=== PATIENT | female | born 1995 | race Caucasian/White ===

== ENCOUNTER 2018-09-13 12:30 | Emergency (ER) | payer BC ==
[2018-09-13 13:10] VITALS: BP 143/80
[2018-09-13 13:56] LABS: Influenza A Molecular POSITIVE (Negative)
[2018-09-13] MEDS ORDERED: Ondansetron ODT TAB* 4 MG PO ONE (14:35)
--- NOTE | 2018-09-13 14:37 | UC ---
FLU HPI - HPI Summary HPI Summary: 23 year old female comes in with a chief complaint of fever chills body aches. Patient has had some upper respiratory tract infection symptoms for about 3 days however yesterday she suddenly felt a lot more ill with the body aches fevers and chills. She is also nauseous. Decreased by mouth intake because of the nausea. Acetaminophen has been helping with the body aches and the fevers. Does have some chest congestion but does not feel short of breath does not have any history of asthma. Does have some sore throat but it's mild and does not remind her of strep throat. - History of Current Complaint Chief Complaint: UCGeneralIllness Stated Complaint: BODY ACHES,HEADACHE,COUGH Time Seen by Provider: 09/13/18 14:25 Hx Last Menstrual Period: 09/04/18 Pain Intensity: 7 - Allergy/Home Medications Allergies/Adverse Reactions: Allergies Allergy/AdvReac Type Severity Reaction Status Date / Time amoxicillin Allergy Hives Verified 09/13/18 13:07 walnut Allergy Swelling Verified 09/13/18 13:07 Of Face,Lips,& Throat Home Medications: Home Medications Acetaminophen TAB* [Tylenol TAB*] 650 mg PO Q4H PRN 09/13/18 [History Confirmed 09/13/18] Bcp 1 tab PO DAILY 09/13/18 [History] D-Methorphan/PE/Acetaminophen [Gnp Day Time Cold/Flu Rel] 1 liq PO Q8H 09/13/18 [History Confirmed 09/13/18] PMH/Surg Hx/FS Hx/Imm Hx Previously Healthy: Yes - Surgical History Surgical History: None - Family History Known Family History: Positive: Non-Contributory - Social History Alcohol Use: Weekly Substance Use Type: None Smoking Status (MU): Never Smoked Tobacco Review of Systems All Other Systems Reviewed And Are Negative: Yes Constitutional: Positive: Fever, Chills Skin: Positive: Negative Eyes: Positive: Negative ENT: Positive: Sore Throat, Nasal Discharge, Sinus Congestion Respiratory: Positive: Cough Cardiovascular: Positive: Negative Gastrointestinal: Positive: Nausea Motor: Positive: Negative Neurovascular: Positive: Negative Musculoskeletal: Positive: Myalgia Neurological: Positive: Negative Psychological: Positive: Negative Is Patient Immunocompromised?: No Physical Exam Triage Information Reviewed: Yes Appearance: No Pain Distress, Well-Nourished, Ill-Appearing - MILD Vital Signs: Initial Vital Signs Temp 98.5 F 09/13/18 13:04 Pulse 91 09/13/18 13:04 Resp 18 09/13/18 13:04 BP 143/80 09/13/18 13:04 Pulse Ox 99 09/13/18 13:04 Vital Signs Reviewed: Yes Eye Exam: Normal Eyes: Positive: Conjunctiva Clear ENT: Positive: Pharyngeal erythema, Nasal congestion, Nasal drainage, TMs normal Neck exam: Normal Neck: Positive: Supple Respiratory: Positive: Lungs clear, Normal breath sounds, No respiratory distress Musculoskeletal Exam: Normal Musculoskeletal: Positive: Strength Intact, ROM Intact Neurological Exam: Normal Neurological: Positive: Alert, Muscle Tone Normal Psychological Exam: Normal Psychological: Positive: Age Appropriate Behavior Skin Exam: Normal Flu Course/Dx - Differential Dx/Diagnosis Provider Diagnosis: Influenza Discharge - Sign-Out/Discharge Documenting (check all that apply): Patient Departure All imaging exams completed and their final reports reviewed: No Studies - Discharge Plan Condition: Stable Disposition: HOME Prescriptions: Ondansetron ODT TAB* [Zofran 4 MG Odt TAB*] 4 mg PO Q6H PRN #10 tab.odt PRN Reason: Nausea Oseltamivir CAP* [Tamiflu CAP*] 75 mg PO BID #10 cap Patient Education Materials: Influenza (ED) Forms: *School Release Referrals: [facility] [Outside] [facility] [place] [facility] [Outside] Additional Instructions: FOLLOW UP WITH YOUR DOCTOR IF NOT COMPLETELY IMPROVED. GET RECHECKED FOR ANY WORSENING OF YOUR CONDITION OR QUESTIONS OR CONCERNS. - Billing Disposition and Condition Condition: STABLE Disposition: Home
== END 2018-09-13 14:43 | disposition home or self-care (01) ==
LOC: UCCORT 12:30
DX: J11.1 Influenza due to unidentified influenza virus with other respiratory manifestations (principal); Z88.0 Allergy status to penicillin; Z91.018 Allergy to other foods
CPT/HCPCS: 99202; A9270-GY; G0463